=== PATIENT | female | born 1950 | race Caucasian/White ===

== ENCOUNTER → 2024-02-22 15:28 | Outpatient (CLI) | payer MEDICARE, SELFPAY ==
[2024-02-25 13:36] LABS: Fecal Immunochemical Test Negative (Negative)
== END ==
PROVIDERS: PCP Family Medicine; Referring Provider Physician Assistant; Visit Provider Physician Assistant
DX: Z12.11 Encounter for screening for malignant neoplasm of colon (principal)
CPT/HCPCS: 82274